=== PATIENT | female | born 1980 | race Caucasian/White ===

== ENCOUNTER 2017-06-19 11:58 | Emergency (ER) | payer OTHER, MEDICAID ==
[~2017-06-19] VITALS: Ht 167.6 cm; Wt 81.2 kg
[~2017-06-19 11:58] MED LIST: ARIP5TAB13; BENZ0.5T6; BROM2.5T3; LEVO125T46; LEVOTHYROXINE; RISPERIDONE; SERT25TA84; SERTALINE
[2017-06-19 12:30] LABS: Urine RBC None Seen /hpf (0 - 4)
[2017-06-19 12:55] LABS: Eosinophils # (auto) 0.2 uL; Hemoglobin 11.9 g/dL (12.2-16.2); Monocytes # (auto) 0.9 uL
[2017-06-19 12:57] LABS: Albumin 3.7 g/dL (3.4-5.0); BUN/Creatinine Ratio 10.3; Basophils # (auto) 0.1 uL; Basophils % (auto) 0.7 % (0.0-2.0); Calcium 9.2 mg/dL (8.5-10.1); Eosinophils % (auto) 1.5 % (0.0-7.0); Lymphocytes # (auto) 2.5 uL; Lymphocytes % (auto) 19.4 % (10.0-50.0); Mean Corpuscular Hemoglobin 27.5 pg (28.0-32.0); Mean Corpuscular Hgb Conc. 32.2 g/dL (32.0-36.0); Mean Corpuscular Volume 85.3 fL (80.0-100.0); Mean Platelet Volume 8.8 fL (6.9-10.8); Monocytes % (auto) 6.8 % (0.0-12.0); Neutrophils # (auto) 9.1 uL; Neutrophils % (auto) 71.6 % (37.0-80.0); Platelet Count (auto) 302 10^3/uL (140-450); Potassium 3.9 mmol/L (3.5-5.1); Red Cell Distribution Width 15.1 % (11.8-14.3); White Blood Cell 12.7 10^3/uL (4.4-10.8)
[2017-06-19 12:58] LABS: Urine Bilirubin Negative (Negative); Urine Blood Negative /uL (Negative); Urine Color Yellow (Yellow); Urine Glucose Normal (Normal); Urine Ketone Negative (Negative); Urine Mucus FEW (None Seen); Urine Nitrite Negative (Negative); Urine Squamous Epithelial Cell FEW /hpf (<5); Urine Urobilinogen Normal (Negative); Urine pH 6.5 (5.0-8.0)
[2017-06-19 13:01] LABS: Bilirubin, Total 0.4 mg/dL (0.2-1.0); Total Protein 7.4 g/dL (6.4-8.2)
[2017-06-19 13:03] LABS: Acetaminophen < 2.0 ug/mL (10-30); Salicylate < 1.7 mg/dL (2.8-20.0)
[2017-06-19] MEDS ORDERED: CIPROFLOXACIN HCL 500 MG TAB PO ONE (13:15)
[2017-06-19 17:30] VITALS: BP 138/77
== END 2017-06-19 18:45 | disposition home or self-care (01) ==
LOC: ER 11:58 → EDBD 11:58 → ER 18:45
DX: F20.9 Schizophrenia, unspecified (principal); N39.0 Urinary tract infection, site not specified; J45.909 Unspecified asthma, uncomplicated; F31.9 Bipolar disorder, unspecified; F41.9 Anxiety disorder, unspecified; Z88.8 Allergy status to other drugs, medicaments and biological substances; Z79.899 Other long term (current) drug therapy
CPT/HCPCS: 36415; 80053; 80307; 80329; 81001; 81025; 85025

== ENCOUNTER 2017-06-19 22:44 | Emergency (ER) | payer OTHER, MEDICAID ==
[~2017-06-19] VITALS: Ht 167.6 cm; Wt 79.4 kg
[2017-06-19] MEDS ORDERED: cloNIDine HCL 0.1 MG TAB PO ONE (23:00)
[2017-06-20 03:37] VITALS: BP 137/99
== END 2017-06-20 03:50 | disposition home or self-care (01) ==
LOC: EDBD 22:44 → ER 22:55
DX: R03.0 Elevated blood-pressure reading, without diagnosis of hypertension (principal); J45.909 Unspecified asthma, uncomplicated; Z02.89 Encounter for other administrative examinations; E07.9 Disorder of thyroid, unspecified; Z88.8 Allergy status to other drugs, medicaments and biological substances; Z79.899 Other long term (current) drug therapy; Z90.49 Acquired absence of other specified parts of digestive tract
CPT/HCPCS: 80307

== ENCOUNTER 2021-11-08 13:15 | Emergency (ER) | payer OTHER, MEDICAID ==
[~2021-11-08] VITALS: Ht 162.6 cm; Wt 87.1 kg
[~2021-11-08 13:15] MED LIST changes: -ARIP5TAB13; +ARIP5TAB15; -BROM2.5T3; +BROM2.5T5
[2021-11-08 14:59] LABS: Basophils # (auto) 0.1 10 ^3/uL (0-0.2); Eosinophils # (auto) 0.2 10 ^3/uL (0-0.8); Eosinophils % (auto) 1.6 % (0.0-7.0); Hematocrit 38.7 % (36.0-46.0); Lymphocytes % (auto) 29.5 % (10.0-50.0); Mean Corpuscular Hgb Conc. 33.5 g/dL (32.0-36.0); Mean Corpuscular Volume 83.6 fL (80.0-100.0); Monocytes % (auto) 9.6 % (0.0-12.0); Neutrophils # (auto) 5.8 10 ^3/uL (1.6-8.6); Neutrophils % (auto) 58.3 % (37.0-80.0); Nucleated Red Blood Cells % 0.1 %; Red Blood Cells 4.63 10^6/uL (4.0-5.20); Red Cell Distribution Width 13.5 % (11.8-14.3)
[2021-11-08 15:12] LABS: Albumin 4.1 g/dL (3.4-5.0); BUN/Creatinine Ratio 10.2; Calcium 9.9 mg/dL (8.5-10.1); Potassium 3.8 mmol/L (3.5-5.1)
[2021-11-08 15:15] LABS: Bilirubin, Total 0.4 mg/dL (0.2-1.0); Total Protein 7.6 g/dL (6.4-8.2)
[2021-11-08 16:20] LABS: Urine Bacteria FEW /hpf (None Seen); Urine Blood 3+ /uL (Negative); Urine Specific Gravity 1.007 (1.001-1.035); Urine WBC 16 /hpf (0 - 5)
[2021-11-08] MEDS ORDERED: NITR-87 PO (16:37)
[2021-11-08 17:51] VITALS: BP 148/92
== END 2021-11-08 17:54 | disposition home or self-care (01) ==
LOC: EDUNIT# 13:15 → EDBD 13:15 → ER 13:15
DX: N39.0 Urinary tract infection, site not specified (principal); J45.909 Unspecified asthma, uncomplicated; Z32.02 Encounter for pregnancy test, result negative; Z88.6 Allergy status to analgesic agent; Z88.8 Allergy status to other drugs, medicaments and biological substances
CPT/HCPCS: 36415; 74176; 80053; 81001; 81025; 83690; 85025

== ENCOUNTER 2021-11-08 19:09 | Emergency (ER) | payer OTHER, MEDICAID ==
[~2021-11-08] VITALS: Ht 162.6 cm; Wt 87.1 kg
[~2021-11-08 19:09] MED LIST changes: +NITR-87 PO
[2021-11-08 19:10] VITALS: BP 132/87
== END 2021-11-08 20:28 | disposition home or self-care (01) ==
LOC: ER 19:13
DX: F41.9 Anxiety disorder, unspecified (principal); F20.9 Schizophrenia, unspecified; F32.9 Major depressive disorder, single episode, unspecified; J45.909 Unspecified asthma, uncomplicated; Z88.6 Allergy status to analgesic agent; Z20.822 Contact with and (suspected) exposure to COVID-19
CPT/HCPCS: 36415; 87426

== ENCOUNTER 2021-11-09 08:20 | Emergency (ER) | payer OTHER, MEDICAID ==
[~2021-11-09] VITALS: Ht 162.6 cm; Wt 87.1 kg
[2021-11-09] MEDS ORDERED: LORazepam 0.5 MG TAB PO ONE (09:15)
[2021-11-09 12:15] VITALS: BP 131/96
== END 2021-11-09 13:53 | disposition home or self-care (01) ==
LOC: ER 08:20
DX: F41.9 Anxiety disorder, unspecified (principal); J45.909 Unspecified asthma, uncomplicated; E03.9 Hypothyroidism, unspecified; Z90.89 Acquired absence of other organs; Z79.899 Other long term (current) drug therapy; Z88.8 Allergy status to other drugs, medicaments and biological substances
CPT/HCPCS: 93005

== ENCOUNTER 2024-08-20 09:51 | Emergency (ER) | payer OTHER, MEDICAID ==
[~2024-08-20] VITALS: Ht 165.1 cm; Wt 85.0 kg
[~2024-08-20 09:51] MED LIST changes: +ARIP5TAB11; -ARIP5TAB15
--- NOTE | 2024-08-20 10:17 | ED.PDOC ---
HPI Comments 43 Y F with PMHX of depression and schizophrenia, presents to the ED with CC of CP. Patient states that she has been experiencing chest pain with associated headache and earache for 2 weeks. Patient states that the pain worsens throughout the day and gets worse at night. Patient relays that the headaches radiate down her back and into her right arm. Patient denies any tobacco, ETOH, or illicit drugs. Patient denies any N/V/D, cough, or SOB. Chief Complaint: Chest Pain Time Seen by MD: 10:06 Primary Care Provider: DR. NARAYAN Reviewed Notes: Nurses Notes, Medications, Allergies Allergies: Coded Allergies: Ranitidine (Verified Allergy, Severe, rash, 06/19/17) Haloperidol (Verified Allergy, Unknown, 06/19/17) Risperidone (Verified Allergy, Unknown, 06/19/17) Zolpidem (Verified Allergy, Unknown, 06/19/17) Home Meds Active Scripts Nitrofurantoin Monohydrate Mac (Macrobid) 100 Mg Cap, 100 MG PO BID for 10 Days, #20 CAP Prov:KVNG AGGARWAL MD 11/08/21 Reported Medications Bromocriptine Mesylate (Bromocriptine Mesylate) 2.5 Mg Tab 04/29/12 Benztropine Mesylate (Cogentin) 0.5 Mg Tb 04/29/12 Sertraline Hcl (Zoloft) 25 Mg Tab 06/01/11 Levothyroxine Sodium (Levothroid) 125 Mcg Tab 06/01/11 Aripiprazole (Abilify) 5 Mg Tab 06/01/11 [Sertaline] No Conflict Check 02/25/11 [Risperidone] No Conflict Check 02/25/11 [Levothyroxine] No Conflict Check 02/25/11 Information Source: Patient Mode of Arrival: Ambulatory Severity: Mild Timing: Weeks Duration: Since onset Radiation: Back, Neck, Arm (R) Onset: At Rest Cardiac Risk Factors: None PE Risk Factors: None History of: None Modifying Factors: Nothing Associated Signs and Symptoms: SOB Past Medical History PAST MEDICAL HISTORY: Anxiety, Asthma, Depression, Schizophrenia, Thyroid Surgical History: Tonsillectomy 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 Family History Family History: Reviewed,noncontributory to illness Social History Smoker: Non-Smoker Alcohol: Denies ETOH Use Drugs: Denies Drug Use Lives In: Home Constitutional: denies: chills, diaphoresis, fatigue, fever, malaise, sweats, weakness, others EENTM: reports: ear pain; denies: blurred vision, double vision, ear bleeding, ear discharge, ear drainage, ear ringing, eye pain, eye redness, hearing loss, mouth pain, mouth swelling, nasal discharge, nose bleeding, nose congestion, nose pain, photophobia, tearing, throat pain, throat swelling, voice changes, others Respiratory: denies: cough, hemoptysis, orthopnea, SOB at rest, shortness of breath, SOB with excertion, stridor, wheezing, others Cardiovascular: reports: chest pain; denies: dizzy spells, diaphoresis, Dyspnea on exertion, edema, irregular heart beat, left arm pain, lightheadedness, palpitations, PND, syncope, others Gastrointestinal: denies: abdomen distended, abdominal pain, blood streaked bowels, constipated, diarrhea, dysphagia, difficulty swallowing, hematemesis, melena, nausea, poor appetite, poor fluid intake, rectal bleeding, rectal pain, vomiting, others Genitourinary: denies: abnormal vagina bleeding, burning, dyspareunia, dysuria, flank pain, frequency, hematuria, incontinence, pain, , vagina discharge, urgency, others Neurological: denies: dizziness, fainting, headache, left sided numbness, left sided weakness, numbness, paresthesia, pre-existing deficit, right sided numbness, right sided weakness, seizure, speech problems, tingling, tremors, weakness, others Musculoskeletal: denies: back pain, gout, joint pain, joint swelling, muscle pain, muscle stiffness, neck pain, others Integumetry: denies: bruises, change in color, change in hair/nails, dryness, laceration, lesions, lumps, rash, wounds, others Allergic/Immunocompromised: denies: Difficulty Healing, Frequent Infections, Hives, Itching, others Hematologic/Lymphatic: denies: anemia, blood clots, easy bleeding, easy bruising, swollen glands, others Endocrine: denies: excessive hunger, excessive sweating, excessive thirst, excessive urination, flushing, intolerance to cold, intolerance to heat, unexplained weight gain, unexplained weight loss, others Psychiatric: denies: anxiety, bipolar disorder, depression, hopeless, panic disorder, schizophrenia, sleepless, suicidal, others All Other Systems: Reviewed and Negative Physical Exam General Appearance: No Apparent Distress, Normal HEENT: Normal ENT Inspection, Pharynx Normal, TMs Normal Neck: Full Range of Motion, Non-Tender, Normal, Normal Inspection Respiratory: Chest Non-Tender, Lungs Clear, No Accessory Muscle Use, No Respiratory Distress, Normal Breath Sounds Cardiovascular: No Edema, No JVD, No Murmur, No Gallop, Normal Peripheral Pulses, Regular Rate/Rhythm, Other (RIGHT UPPER CHEST SLIGHT TENDERNESS) Breast Exam: Deferred Gastrointestinal: No Organomegaly, Non Tender, No Pulsatile Mass, Normal Bowel Sounds, Soft Genitalia: Deferred Pelvic: Deferred Rectal: Deferred Extremities: No calf tenderness, Normal capillary refill, Normal inspection, Normal range of motion, Non-tender, No pedal edema Musculoskeletal : Apperance: Normal Neurologic: Alert, 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 Was a procedure done?: No CP Differential Dx Differential Diagnosis: N/A Differential Diagnosis: N/A Differential Diagnosis: Chest Wall Pain, Costochondritis, Pneumonia X-Ray, Labs, Meds, VS Vital Signs Date Time Temp Pulse Resp B/P (MAP) Pulse Ox O2 Delivery O2 Flow Rate FiO2 08/20/24 11:48 98.3 86 16 115/74 (88) 99 98.3 08/20/24 10:58 75 08/20/24 10:17 77 08/20/24 10:04 99.0 88 19 131/91 (104) 96 08/20/24 09:55 77 Lab Test 08/20/24 10:17 Range/Units Urine Color Colorless Yellow Urine Clarity Turbid H Clear Urine pH 5.5 5.0-9.0 Urine Specific [place] 1.003 1.001-1.035 Urine Protein Negative Negative Urine Ketones Negative Negative Urine Blood Negative Negative /uL Urine Nitrite Negative Negative Urine Bilirubin Negative Negative Urine Urobilinogen Normal Negative mg/dL Urine Leukocyte Esterase 2+ Negative /uL Urine RBC 4 0 - 4 /hpf Urine WBC 10 0 - 5 /hpf Urine Squamous Epithelial Cells Few <5 /hpf Urine Bacteria Few H None Seen /hpf Urine Glucose Normal Normal mg/dL Urine Test Negative Negative Chest XR: FINDINGS: Lines and Tubes: None Lungs: Clear Pleura: No effusion. No pneumothorax. Cardiomediastinal contours: Unremarkable Bones: Unremarkable IMPRESSION: No acute disease. Images Reviewed?: Images reviewed and evaluated by me Time of 1ST Reevaluation: 11:06 Reevaluation 1ST: Unchanged Time of 2ND Reevaluation: 12:06 Reevaluation 2ND: Unchanged Patient Education/Counseling: Diagnosis, Treatment Family Education/Counseling: No Family Present Departure 1 Departure Time of Disposition: 12:07 Impression: Primary Impression: UTI (urinary tract infection) Additional Impression: Viral URI Disposition: 01 HOME / SELF CARE / HOMELESS Condition: Stable Additional Instructions: Thank you for visiting our Emergency Room. I wish you full and complete recovery. Please follow the following instructions: 1. Take your medication bottles with you to EVERY DOCTOR'S VISIT (including your primary doctor). 2. Please follow up with your primary doctor in 2-3 days or sooner if symptoms do not improve. 3. Please read all the papers given to you at the time of the discharge so that you understand your condition better. 4. Please note that the emergency room visits are focused and not necessarily comprehensive. Therefore, it is possible that some occult medical conditions may go undiagnosed in the ER. 5. The emergency room visits are not and should not be thought of as replacement for regular visits with your primary doctor. 6. Therefore, it is absolutely critical that you follows up with your primary doctor on regular basis to make sure you receives a complete and comprehensive care. 7. I recommended the you take the hospital discharge papers to your primary care physician and other doctors' offices with you. 8. Go to your nearest emergency room if you think your condition gets worse or you think your condition is an emergency. Discharged With: Self Critical Care Note Critical Care Time?: No Stability Stability form required: No Heart Score Heart Score: Heart Score Response (Comments) Value History N/A 0 EKG N/A 0 Age N/A 0 Risk Factors N/A 0 Troponin N/A 0 Total 0 I personally scribed for AMAURY FREIRE MD ([email or web address]) on 08/20/24 at 10:17. Electronically submitted by Marislea Ernst ([email or web address]). I personally scribed for AMAURY FREIRE MD ([email or web address]) on 08/20/24 at 10:27. Electronically submitted by Marisela Ernst ([email or web address]). I personally scribed for AMAURY FREIRE MD ([email or web address]) on 08/20/24 at 11:03. Electronically submitted by Shahid Dill ([email or web address]). I personally scribed for AMAURY FREIRE MD ([email or web address]) on 08/20/24 at 11:39. Electronically submitted by Shahid Dill ([email or web address]). AMAURY FREIRE MD Aug 20, 2024 10:17
--- NOTE | 2024-08-20 11:21 | ECG ---
[facility] Test Date: 2024-08-20 Test Time: 09:55:59 Pat Name: THERESE LOZOYA Department: ER Room: Gender: F Spirits Model: EDMOND : 1980 Requested By: AMAURY FREIRE Order Number: [id number] Reading MD: Ernesto Gill Measurements Intervals [place] Rate: 77 P: 52 TX: 152 QRS: 62 QRSD: 96 T: -7 QT: 390 QTc: 442 Interpretive Statements Sinus rhythm Low voltage, precordial leads Borderline T abnormalities, diffuse leads Electronically Signed On 08-21-2024 16:23:43 PST by Ernesto Gill Please click the below link to view image of tracing.
[2024-08-20 11:23] LABS: Urine Bacteria FEW /hpf (None Seen); Urine Blood Negative /uL (Negative); Urine Clarity Turbid (Clear); Urine Color Colorless (Yellow); Urine Protein, UAD Negative (Negative); Urine Specific Gravity 1.003 (1.001-1.035); Urine Urobilinogen Normal (Negative); Urine WBC 10 /hpf (0 - 5); Urine pH 5.5 (5.0-9.0)
--- NOTE | 2024-08-20 11:28 | DVH ---
CHEST RADIOGRAPH Indication: cp Technique: Single frontal view of the chest was obtained COMPARISON: None FINDINGS: Lines and Tubes: None Lungs: Clear Pleura: No effusion. No pneumothorax. Cardiomediastinal contours: Unremarkable Bones: Unremarkable IMPRESSION: No acute disease.
[2024-08-20] MEDS ORDERED: BACDST PO (12:10)
[2024-08-20 13:34] VITALS: BP 129/88; PULSE 90; RESP 16; TEMP 99.1; O2SAT 98
[2024-08-20] MEDS: ACETAMINOPHEN 500 MG TAB PO ONE (13:47)
--- NOTE | 2024-08-21 10:38 | ECG ---
[facility] Test Date: 2024-08-20 Test Time: 10:58:43 Pat Name: THERESE LOZOYA Department: ER Room: Gender: F Theater Teacher: STORMY : 1980 Requested By: AMAURY FREIRE Order Number: [id number] Reading MD: Ernesto Gill Measurements Intervals [place] Rate: 75 P: 67 [place]: 145 QRS: 69 QRSD: 87 T: -2 QT: 360 QTc: 402 Interpretive Statements Sinus rhythm Low voltage, precordial leads Electronically Signed On 08-21-2024 16:24:02 PST by Ernesto Gill Please click the below link to view image of tracing.
== END 2024-08-20 13:52 | disposition home or self-care (01) ==
LOC: ER 09:51
DX: N39.0 Urinary tract infection, site not specified (principal); J06.9 Acute upper respiratory infection, unspecified; B97.89 Other viral agents as the cause of diseases classified elsewhere; F41.9 Anxiety disorder, unspecified; F32.A Depression, unspecified; J45.909 Unspecified asthma, uncomplicated; F20.9 Schizophrenia, unspecified; Z90.89 Acquired absence of other organs; Z88.8 Allergy status to other drugs, medicaments and biological substances; Z79.899 Other long term (current) drug therapy
CPT/HCPCS: 71045; 81001; 81025; 93005

== ENCOUNTER 2025-05-28 20:40 | Emergency (ER) | payer OTHER, MEDICAID ==
[~2025-05-28] VITALS: Ht 162.6 cm; Wt 82.7 kg
[~2025-05-28 20:40] MED LIST changes: +BACDST PO
[2025-05-28 22:13] LABS: Hematocrit 39.3 % (36.0-46.0); Hemoglobin 13.3 g/dL (12.2-16.2); Mean Corpuscular Hemoglobin 28.4 pg (28.0-32.0); Mean Corpuscular Volume 83.5 fL (80.0-100.0); Nucleated Red Blood Cells % 0.0 %
--- NOTE | 2025-05-29 00:38 | ED.PDOC ---
History of Present Illness(SKN HPI Comments 44 year old female presents to ER with right breast pain x 2 days. Patient presents VIA EMS, stating she started developing a 7/10 tender painful lump to upper inner quadrant of her right breast 2 days ago. Patient also endorses "dark" colored urine x 1 day and presents to ER ambulatory on arrival, with s teady gait in no distress. Denies fever, body aches, chills, shortness of breath, chest pain, fatigue, night sweats, nipple discharge, weight changes or any further symptoms/complaints Chief Complaint: Breast pain Time Seen by MD: 22:01 Primary Care Provider: LITTLE Allergies: Coded Allergies: Ranitidine (Verified Allergy, Severe, rash, 06/19/17) Haloperidol (Verified Allergy, Unknown, 06/19/17) Risperidone (Verified Allergy, Unknown, 06/19/17) Zolpidem (Verified Allergy, Unknown, 06/19/17) Home Meds Active Scripts Acetaminophen (Acetaminophen) 500 Mg Tab, 500 MG PO Q4HPRN, #30 TAB 0 Refills Prov:MONIKA ORDONEZ 05/29/25 Dicloxacillin Sodium (Dicloxacillin Sodium) 500 Mg Cap, 1 CAP PO QID for 10 Days, #40 CAP 0 Refills Prov:MONIKA ORDONEZ 05/29/25 Sulfamethoxazole W/Trimethopri (Bactrim Ds Tablet) 1 Tab Tb, 1 TAB PO BID for 5 Days, #10 TAB Prov:AMAURY FREIRE MD 08/20/24 Sulfamethoxazole W/Trimethopri (Bactrim Ds Tablet) 1 Tab Tb, 1 TAB PO BID for 5 Days, #10 TAB Prov:AMAURY FREIRE MD 08/20/24 Sulfamethoxazole W/Trimethopri (Bactrim Ds Tablet) 1 Tab Tb, 1 TAB PO BID for 5 Days, #10 TAB Prov:AMAURY FREIRE MD 08/20/24 Nitrofurantoin Monohydrate Mac (Macrobid) 100 Mg Cap, 100 MG PO BID for 10 Days, #20 CAP Prov:KVNG AGGARWAL MD 11/08/21 Reported Medications Bromocriptine Mesylate (Bromocriptine Mesylate) 2.5 Mg Tab 04/29/12 Benztropine Mesylate (Cogentin) 0.5 Mg Tb 04/29/12 Sertraline Hcl (Zoloft) 25 Mg Tab 06/01/11 Levothyroxine Sodium (Levothroid) 125 Mcg Tab 06/01/11 Aripiprazole (Abilify) 5 Mg Tab 06/01/11 [Sertaline] No Conflict Check 02/25/11 [Risperidone] No Conflict Check 02/25/11 [Levothyroxine] No Conflict Check 02/25/11 Information Source: Patient Mode of Arrival: EMS Past Medical History PAST MEDICAL HISTORY: Anxiety, Asthma, Depression, Schizophrenia, Thyroid Surgical History: Tonsillectomy 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 History Family History Family History: Family hx of DM, Family hx of Cancer, Family hx of HTN Social History Smoker: Non-Smoker Alcohol: Denies ETOH Use Drugs: Denies Drug Use Lives In: Home Constitutional: denies: chills, diaphoresis, fatigue, fever, malaise, sweats, weakness, others EENTM: denies: blurred vision, double vision, ear bleeding, ear discharge, ear drainage, ear pain, ear ringing, eye pain, eye redness, hearing loss, mouth pain, mouth swelling, nasal discharge, nose bleeding, nose congestion, nose pain, photophobia, tearing, throat pain, throat swelling, voice changes, others Respiratory: denies: cough, hemoptysis, orthopnea, SOB at rest, shortness of breath, SOB with excertion, stridor, wheezing, others Cardiovascular: denies: chest pain, dizzy spells, diaphoresis, Dyspnea on exertion, edema, irregular heart beat, left arm pain, lightheadedness, palpitations, PND, syncope, others Gastrointestinal: denies: abdomen distended, abdominal pain, blood streaked bowels, constipated, diarrhea, dysphagia, difficulty swallowing, hematemesis, melena, nausea, poor appetite, poor fluid intake, rectal bleeding, rectal pain, vomiting, others Genitourinary: denies: abnormal vagina bleeding, burning, dyspareunia, dysuria, flank pain, frequency, hematuria, incontinence, pain, , vagina discharge, urgency, others Neurological: denies: dizziness, fainting, headache, left sided numbness, left sided weakness, numbness, paresthesia, pre-existing deficit, right sided numbness, right sided weakness, seizure, speech problems, tingling, tremors, weakness, others Musculoskeletal: denies: back pain, gout, joint pain, joint swelling, muscle pain, muscle stiffness, neck pain, others Integumetry: reports: others (As stated in HPI) Allergic/Immunocompromised: denies: Difficulty Healing, Frequent Infections, Hives, Itching, others Hematologic/Lymphatic: denies: anemia, blood clots, easy bleeding, easy bruising, swollen glands, others Endocrine: denies: excessive hunger, excessive sweating, excessive thirst, excessive urination, flushing, intolerance to cold, intolerance to heat, unexplained weight gain, unexplained weight loss, others Psychiatric: denies: anxiety, bipolar disorder, depression, hopeless, panic disorder, schizophrenia, sleepless, suicidal, others Physical Exam General Appearance: No Apparent Distress HEENT: PERRL/EOMI Neck: Full Range of Motion, Non-Tender, Normal Respiratory: Chest Non-Tender, Lungs Clear, No Accessory Muscle Use, No Respiratory Distress, Normal Breath Sounds Cardiovascular: No Murmur, No Gallop, Regular Rate/Rhythm Breast Exam: Other (Female chapperone present- tender 1cm x 1cm circumferential mobile lump to upper inner quadrant of right breast. No erythema/discharge/induration/fluctuance/ lymphadenopathy/further skin changes noted) Gastrointestinal: NOT DONE Genitalia: Deferred Pelvic: Deferred Rectal: Deferred Extremities: Normal capillary refill, Normal range of motion Neurologic: Alert, No Motor Deficits, Normal Affect, Normal Mood, No Sensory Deficits Cerebellar Function: Normal Reflexes: Normal Skin: Dry, Normal Color, Warm Peripheral Pulses: 2+ carotid (R), 2+ carotid (L), 2+ Radial (R), 2+ Radial (L), 2+ Brachial (R), 2+ Brachial (L) Lymphatic: No Adenopathy Was a procedure done? Was a procedure done?: No Sedation Sedation?: No Differential Diagnosis (INTG) Differential Diagnosis: Abrasion Differential Diagnosis: Abscess Differential Diagnosis: Other (mass) X-Ray, Labs, Meds, VS Vital Signs Date Time Temp Pulse Resp B/P (MAP) Pulse Ox O2 Delivery O2 Flow Rate FiO2 05/29/25 04:05 97.9 87 18 135/48 (77) 98 97.9 05/28/25 20:40 98.6 100 16 139/87 97 98.6 Lab Test 9/11/25 01:10 05/28/25 21:37 Range/Units Urine Color Colorless Yellow Urine Clarity Clear Clear Urine pH 5.5 5.0-9.0 Urine Specific [place] 1.005 1.001-1.035 Urine Protein Negative Negative Urine Ketones Negative Negative Urine Blood Negative Negative /uL Urine Nitrite Negative Negative Urine Bilirubin Negative Negative Urine Urobilinogen Normal Negative mg/dL Urine Leukocyte Esterase Negative Negative /uL Urine RBC None seen 0 - 4 /hpf Urine Microscopic WBC 1 0-5 /HPF Urine Squamous Epithelial Cells Few <5 /hpf Urine Bacteria None seen None Seen /hpf Urine Glucose 2+ H Normal mg/dL White Blood Count 13.2 H 4.4-10.8 10^3/uL Red Blood Count 4.71 4.0-5.20 10^6/uL Hemoglobin 13.3 12.2-16.2 g/dL Hematocrit 39.3 36.0-46.0 % Mean Corpuscular Volume 83.5 80.0-100.0 fL Mean Corpuscular Hemoglobin 28.4 28.0-32.0 pg Mean Corpuscular Hemoglobin Concent 34.0 32.0-36.0 g/dL Red Cell Distribution Width 13.5 11.8-14.3 % Platelet Count 265 140-450 10^3/uL Mean Platelet Volume 9.3 6.9-10.8 fL Neutrophils (%) (Auto) 76.2 37.0-80.0 % Lymphocytes (%) (Auto) 14.8 10.0-50.0 % Monocytes (%) (Auto) 7.7 0.0-12.0 % Eosinophils (%) (Auto) 0.9 0.0-7.0 % Basophils (%) (Auto) 0.4 0.0-2.0 % Neutrophils # (Auto) 10.0 H 1.6-8.6 10 ^3/uL Lymphocytes # (Auto) 1.9 0.4-5.4 10 ^3/uL Monocytes # (Auto) 1.0 0-1.3 10 ^3/uL Eosinophils # (Auto) 0.1 0-0.8 10 ^3/uL Basophils # (Auto) 0 0-0.2 10 ^3/uL Nucleated Red Blood Cells 0.0 % PATIENT: THERESE LOZOYA V ACCT: [id number] UNIT: [id number] : 1980 LOC: ER ROOM / BED: / AGE / SEX: 44 / F ADM STATUS: REG ER SERVICE ORDERING PHYSICIAN: MONIKA ORDONEZ PROCEDURE(s): RBRST - R BREAST ULTRASOUND REASON: Tender/palpable lump to right upper inner quadrant of breast ORDER NUMBER(s): [id number], ACCESSION NUMBER(s): [id number] US OF THE RIGHT BREAST INDICATION: Tender/palpable lump to right upper inner quadrant of breast TECHNIQUE: All 4 quadrants, subareolar region and axillary region of the RIGHT breast were evaluated with ultrasound COMPARISON: None FINDINGS: Few dilated ducts are present in the 12 o'clock right vance areolar region. No solid or suspicious masses. No areas of architectural distortion. No malignant adenopathy. No dominant cysts are present. IMPRESSION: There is no sonographic evidence for malignancy. Probably benign few vance areolar prominent ducts are present at the 2 o'clock position. Bilateral diagnostic mammography recommended. ACR Bi Rads Category:Category 0-"INCOMPLETE" (Needs Additional Imaging Evaluation)) ATED BY: ASHU ALDRIDGE MD DICTATED DATE/TIME: 05/29/25451 SIGNED BY: ASHU ALDRIDGE MD SIGNED DATE/TIME: 05/29/25451 CC: CBC reviewed- mild leukocytosis with neutrophilia - will treat for possible early right sided mastitis Urinalysis ordered and reviewed Right breast ultrasound reviewed Advised to alternate warm compresses on/off Patient afebrile and well appearing/in no distress during ER visit/prior to discharge Discussed with patient that she will benefit from mammogram of bilateral breast for further evaluation of symptoms and was advised to follow up as soon as possible for a mammogram of right breast- with all risks of not following up discussed Advised to follow up with PCP in 1-2 days Patient verbalized understanding and agreeable with current plan of care Advised to return to ER immediately if symptoms worsen Images Reviewed?: Images reviewed and evaluated by me Time of 1ST Reevaluation: 00:32 Reevaluation 1ST: N/A Time of 2ND Reevaluation: 03:40 Reevaluation 2ND: Unchanged Patient Education/Counseling: Diagnosis, Treatment, Prognosis, Need For Follow Up Family Education/Counseling: No Family Present SEPSIS Sepsis Screen Date sepsis recognized/suspect: May 28, 2025 Time Sepsis recognized/suspect: 2039 Recent Procedure: No On Antibiotic Therapy: No Respiratory Rate >20: No Heart Rate >90: Yes Temp<36 C (96.8 F) or >38.3 C: No SBP <90 or MAP <65 mmHG: No New Acute Mental Status Change: No Is the patient on CPAP, BIPAP,: No Physician Orders R Breast Ultrasound (05/29/25 00:22) Vital Signs Date Time Temp Pulse Resp B/P (MAP) Pulse Ox O2 Delivery O2 Flow Rate FiO2 05/29/25 04:05 97.9 87 18 135/48 (77) 98 97.9 05/28/25 20:40 98.6 100 16 139/87 97 98.6 Laboratory Tests Test 05/28/25 21:37 White Blood Count 13.2 10^3/uL (4.4-10.8) H Departure 1 Departure Time of Disposition: 04:44 Impression: Primary Impression: Acute mastitis of right breast Disposition: 01 HOME / SELF CARE / HOMELESS Condition: Stable e-Prescriptions Acetaminophen (Acetaminophen) 500 Mg Tab 500 MG PO Q4HPRN, #30 TAB 0 Refills Prov: MONIKA ORDONEZ 05/29/25 Dicloxacillin Sodium (Dicloxacillin Sodium) 500 Mg Cap 1 CAP PO QID for 10 Days, #40 CAP 0 Refills Prov: MONIKA ORDONEZ 05/29/25 Discharged With: Friend Critical Care Note Critical Care Time?: No Stability Stability form required: No Heart Score Heart Score: Heart Score Response (Comments) Value History N/A 0 EKG N/A 0 Age N/A 0 Risk Factors N/A 0 Troponin N/A 0 Total 0 MONIKA ORDONEZ May 29, 2025 00:38
[2025-05-29 01:41] LABS: Urine Protein, UAD Negative (Negative)
[2025-05-29] MEDS ORDERED: DICL500C76 PO (04:46)
[2025-05-29] MEDS ORDERED: ACET500T58 PO (04:46)
--- NOTE | 2025-05-29 04:54 | DVH ---
US OF THE RIGHT BREAST INDICATION: Tender/palpable lump to right upper inner quadrant of breast TECHNIQUE: All 4 quadrants, subareolar region and axillary region of the RIGHT breast were evaluated with ultrasound COMPARISON: None FINDINGS: Few dilated ducts are present in the 12 o'clock right vance areolar region. No solid or suspicious masses. No areas of architectural distortion. No malignant adenopathy. No dominant cysts are present. IMPRESSION: There is no sonographic evidence for malignancy. Probably benign few vance areolar prominent ducts are present at the 2 o'clock position. Bilateral diagnostic mammography recommended. ACR Bi Rads Category:Category 0-"INCOMPLETE" (Needs Additional Imaging Evaluation))
[2025-05-29 05:40] VITALS: RESP 16; O2SAT 95
[2025-05-29 05:43] VITALS: BP 135/48; PULSE 104; RESP 17; TEMP 99; O2SAT 95
== END 2025-05-29 05:51 | disposition home or self-care (01) ==
LOC: EDBD 20:40 → ER 20:40
DX: N61.0 Mastitis without abscess (principal); F41.9 Anxiety disorder, unspecified; J45.909 Unspecified asthma, uncomplicated; Z90.89 Acquired absence of other organs; Z79.899 Other long term (current) drug therapy
CPT/HCPCS: 36415; 76642; 81001; 85025